=== PATIENT | female | born 1965 | race Caucasian/White ===

== ENCOUNTER 2016-06-13 14:27 | Emergency (ER) | payer OTHER ==
[~2016-06-13] VITALS: Ht 175.3 cm; Wt 73.6 kg
[~2016-06-13 14:27] MED LIST: ALBU8.5H4 IH; ALBUTEROL; CETI-262 PO; HYDR-3708 PO; HYDR-3882 GT; LEVE500T PO; ZYRTEC OTC
[2016-06-13] MEDS ORDERED: NALBUPHINE 10 MG/ML (NUBAIN) 1 ML AMP IM ONE (14:40)
[2016-06-13] MEDS ORDERED: PROMETHAZINE 25 MG/ML (PHENERGAN) 1 ML VIAL IM ONE (14:40)
[2016-06-13] MEDS ORDERED: muscle relaxant (14:41)
[2016-06-13] MEDS ORDERED: LORA0.5T PO (14:41)
[2016-06-13] MEDS ORDERED: GBPN400C PO (14:41)
[2016-06-13] MEDS ORDERED: predniSONE 20 MG (DELTASONE) TABLET PO ONE (15:20)
[2016-06-13] MEDS ORDERED: TRIA80CR3 TOP (15:28)
[2016-06-13] MEDS ORDERED: PRED20TA PO (15:28)
[2016-06-13 15:35] VITALS: BP 123/85
== END 2016-06-13 15:35 | disposition home or self-care (01) ==
LOC: ED 14:29
DX: L30.8 Other specified dermatitis (principal)
CPT/HCPCS: 99282; 99283

== ENCOUNTER → 2016-09-21 | Outpatient (CLI) | payer OTHER ==
[~2016-09-21] MED LIST changes: +GBPN400C PO; +LORA0.5T PO; +PRED20TA PO; +TRIA80CR3 TOP; +muscle relaxant
[2016-09-28 13:41] LABS: HEP C COPIES ML Not Detected
== END ==
LOC: LAB 12:05
PROVIDERS: ATTEND Internal Medicine Infectious Disease
DX: B19.20 Unspecified viral hepatitis C without hepatic coma (principal)
CPT/HCPCS: 36415; 87522